=== PATIENT | female | born 1995 | race Caucasian/White ===

== ENCOUNTER 2020-09-02 21:53 | Emergency (ER) | payer OTHER ==
[2020-09-02 22:01] VITALS: BP 122/81; PULSE 99; TEMP 98.4; BMI 31.1
[2020-09-02 23:08] LABS: BASO % 0.9 % (0-2.0); EOS % 1.9 % (0-4.5); HEMATOCRIT 36.5 % (32.4-45.2); HEMOGLOBIN 12.7 GM/dL (10.7-15.3); LYMPH % 29.7 % (8-40); MCH 31.2 pg (25.7-33.7); MCHC 34.8 g/dl (32.0-36.0); MEAN CELL VOLUME 89.7 fl (80-96); MEAN PLT VOLUME 7.9 fl (7.5-11.1); MONO % 4.8 % (3.8-10.2); NEUT % 62.7 % (42.8-82.8); PLATELET COUNT 325 10^3/uL (134-434); RBC 4.07 M/mm3 (3.60-5.2); RDW 12.9 % (11.6-15.6); WHITE BLOOD COUNT 9.1 K/mm3 (4.0-10.0)
[2020-09-02 23:33] LABS: PH,URINE 5.5 (5.0-8.0); URINE APPEARANCE Clear; URINE BILIRUBIN Negative (NEGATIVE); URINE COLOR Yellow; URINE GLUCOSE (UA) Negative (NEGATIVE); URINE KETONE Negative (NEGATIVE); URINE LEUK ESTERASE Negative (NEGATIVE); URINE NITRITE Negative (NEGATIVE); URINE PROTEIN Negative (NEGATIVE); URINE UROBILINOGEN 0.2 mg/dL (0.2-1.0)
[2020-09-03] MEDS ORDERED: RHO(D) IMMUNE GLOBULIN 1,500 UNIT DISP.SYRIN IM ONE (00:50)
[2020-09-03 10:44] LABS: EPI CELLS 1.1 /uL (0-25.1); URINE RBC 1.1 /uL (0-23.9); URINE WBC 1.2 /uL (0-25.8)
[2020-09-03 10:45] LABS: HYALINE CASTS 0.12 /uL (0-3.1); URINE BACTERIA 5.5 /uL (0-1359)
== END 2020-09-03 02:20 | disposition home or self-care (01) ==
LOC: JER 21:53
PROC: 3E023GC Introduction of Other Therapeutic Substance into Muscle, Percutaneous Approach (ICD-10-PCS; principal; 2020-09-02)
DX: O20.9 Hemorrhage in early pregnancy, unspecified (principal); Z3A.08 8 weeks gestation of pregnancy
CPT/HCPCS: 36415; 76801-TC; 81003; 84702; 85025; 86850; 86900; 86901; 86999; 87086; 99284-25; J1561

== ENCOUNTER 2021-03-23 17:50 | Emergency (ER) | payer OTHER ==
[2021-03-23 18:01] VITALS: BP 122/78; PULSE 68; TEMP 97; BMI 34.4
[2021-03-23] MEDS ORDERED: ELECTROLYTE-148 SOLN 500 ML IV SCH ×2 (19:30→20:30)
[2021-03-23 20:08] LABS: BASO % 0.3 % (0-2.0); EOS % 0.3 % (0-4.5); HEMATOCRIT 37.3 % (32.4-45.2); HEMOGLOBIN 12.8 GM/dL (10.7-15.3); LYMPH % 18.3 % (8-40); MCH 31.9 pg (25.7-33.7); MCHC 34.3 g/dl (32.0-36.0); MEAN PLT VOLUME 8.3 fl (7.5-11.1); MONO % 4.4 % (3.8-10.2); NEUT % 76.7 % (42.8-82.8); PLATELET COUNT 264 10^3/uL (134-434); RBC 4.01 M/mm3 (3.60-5.2); RDW 13.8 % (11.6-15.6); WHITE BLOOD COUNT 7.1 K/mm3 (4.0-10.0)
[2021-03-23 20:52] LABS: CALCIUM 9.3 mg/dL (8.5-10.1)
[2021-03-23 20:53] LABS: ALBUMIN 2.7 g/dl (3.4-5.0); BLOOD UREA NITROGEN 7.2 mg/dL (7-18)
[2021-03-23 20:54] LABS: EPI CELLS >36 /uL (0-25.1); HYALINE CASTS 15 /uL (0-3.1); PH,URINE 5.5 (5.0-8.0); URINE APPEARANCE CLOUDY; URINE BILIRUBIN 2+ (NEGATIVE); URINE COLOR DK YELLOW; URINE GLUCOSE (UA) NEGATIVE (NEGATIVE); URINE KETONE 4+ (NEGATIVE); URINE LEUK ESTERASE TRACE (NEGATIVE); URINE NITRITE POSITIVE (NEGATIVE); URINE PROTEIN 1+ (NEGATIVE); URINE RBC 45 /uL (0-23.9); URINE WBC 72 /uL (0-25.8)
[2021-03-23 20:56] LABS: CREATININE 0.7 mg/dL (0.55-1.3)
[2021-03-23 20:57] LABS: BILIRUBIN,TOTAL 1.2 mg/dL (0.2-1); TOT PROT 6.2 g/dl (6.4-8.2)
[2021-03-23 21:20] LABS: URINE BACTERIA 1331.1 /uL (0-1359)
[2021-03-23] MEDS ORDERED: CITRIC ACID/SODIUM CITRATE 30 ML UNIT-DOSE CUP PO ONE (21:24)
== END 2021-03-23 23:20 | disposition home or self-care (01) ==
LOC: JER 17:50
DX: O26.893 Other specified pregnancy related conditions, third trimester (principal); R10.10 Upper abdominal pain, unspecified; E86.0 Dehydration; O24.419 Gestational diabetes mellitus in pregnancy, unspecified control; Z3A.37 37 weeks gestation of pregnancy
CPT/HCPCS: 36415; 80053; 81003; 85025; 87086; 99283-25

== ENCOUNTER 2021-03-24 15:34 | Inpatient (IN) | payer OTHER ==
[2021-03-24 15:39] VITALS: BMI 34.4
[2021-03-24] MEDS ORDERED: ACETAMINOPHEN 1000 MG/100 ML BAG IVPB ONE (16:48)
[2021-03-24] MEDS ORDERED: ONDANSETRON 4 MG/2 ML VIAL IVPUSH ONE (16:48)
[2021-03-24] MEDS ORDERED: SODIUM CHLORIDE 1,000 ML IV STA ×2 (16:48→21:03)
[2021-03-24] MEDS ORDERED: DEXTROSE 5%-0.45% SALINE 1,000 ML IV SCH (17:00)
[2021-03-24] MEDS ORDERED: ACETAMINOPHEN INJECTION 100 ML IVPB ONE (17:20)
[2021-03-24] MEDS ORDERED: ONDANSETRON 4 MG/2 ML VIAL ONE (17:20)
[2021-03-24] MEDS ORDERED: LACTATED RINGERS SOLUTION 1,000 ML/1,000 ML INFUS.BAG IV SCH (17:30)
[2021-03-24 17:46] LABS: BASO % 0.3 % (0-2.0); EOS % 0.4 % (0-4.5); HEMATOCRIT 41.7 % (32.4-45.2); HEMOGLOBIN 14.2 GM/dL (10.7-15.3); LYMPH % 19.1 % (8-40); MCH 31.7 pg (25.7-33.7); MEAN CELL VOLUME 93.1 fl (80-96); MEAN PLT VOLUME 8.9 fl (7.5-11.1); MONO % 4.2 % (3.8-10.2); PLATELET COUNT 279 10^3/uL (134-434); RBC 4.48 M/mm3 (3.60-5.2); RDW 13.6 % (11.6-15.6); WHITE BLOOD COUNT 6.8 K/mm3 (4.0-10.0)
[2021-03-24 17:52] LABS: INR 0.87 (0.83-1.09)
[2021-03-24 18:07] LABS: BLOOD UREA NITROGEN 6.4 mg/dL (7-18)
[2021-03-24 18:10] LABS: CREATININE 0.7 mg/dL (0.55-1.3)
[2021-03-24 18:12] LABS: BILIRUBIN,TOTAL 1.2 mg/dL (0.2-1); TOT PROT 6.9 g/dl (6.4-8.2)
[2021-03-24] MEDS ORDERED: morphine CARPU-JECT 4 MG/1 ML DISP.SYRIN IVPUSH ONE (19:21)
[2021-03-24] MEDS ORDERED: morphine SULFATE 4 MG/ML VIAL ONE (20:25)
[2021-03-24 20:31] LABS: EPI CELLS >36 /uL (0-25.1); HYALINE CASTS 11 /uL (0-3.1); PH,URINE 5.5 (5.0-8.0); URINE APPEARANCE CLOUDY; URINE BILIRUBIN 2+ (NEGATIVE); URINE COLOR DK YELLOW; URINE GLUCOSE (UA) NEGATIVE (NEGATIVE); URINE KETONE 4+ (NEGATIVE); URINE LEUK ESTERASE NEGATIVE (NEGATIVE); URINE NITRITE POSITIVE (NEGATIVE); URINE PROTEIN 1+ (NEGATIVE); URINE RBC 30 /uL (0-23.9); URINE WBC 46 /uL (0-25.8)
[2021-03-24 23:12] LABS: URINE BACTERIA 486.5 /uL (0-1359)
[2021-03-24] MEDS ORDERED: CEFTRIAXONE 1,000 MG in DEXTROSE 5%-WATER - 50 ML IVPB ONE (23:46)
[2021-03-25] MEDS ORDERED: CEFTRIAXONE 1 GM/50 ML BAG ONE (00:16)
[2021-03-25] MEDS ORDERED: ACETAMINOPHEN 1000 MG/100 ML BAG IVPB ONE (10:15)
[2021-03-25] MEDS ORDERED: HYDROmorphone HCl 2 MG/ML VIAL IVPB ONE (12:00)
[2021-03-25] MEDS: SODIUM CHLORIDE 1,000 ML IV SCH ×2 (12:08→21:08)
[2021-03-25] MEDS: ONDANSETRON 4 MG/2 ML VIAL IVPUSH PRN (12:38)
[2021-03-25 13:15] LABS: BASO % 0.3 % (0-2.0); EOS % 0.6 % (0-4.5); HEMOGLOBIN 11.9 GM/dL (10.7-15.3); LYMPH % 19.7 % (8-40); MCH 31.9 pg (25.7-33.7); MCHC 34.1 g/dl (32.0-36.0); MEAN CELL VOLUME 93.6 fl (80-96); MEAN PLT VOLUME 8.4 fl (7.5-11.1); MONO % 4.8 % (3.8-10.2); NEUT % 74.6 % (42.8-82.8); PLATELET COUNT 224 10^3/uL (134-434); RBC 3.73 M/mm3 (3.60-5.2); RDW 13.7 % (11.6-15.6); WHITE BLOOD COUNT 5.5 K/mm3 (4.0-10.0)
[2021-03-25 13:35] LABS: CALCIUM 8.9 mg/dL (8.5-10.1)
[2021-03-25 13:36] LABS: BLOOD UREA NITROGEN 5.7 mg/dL (7-18)
[2021-03-25 13:37] LABS: ALBUMIN 2.4 g/dl (3.4-5.0)
[2021-03-25 13:39] LABS: CREATININE 0.7 mg/dL (0.55-1.3)
[2021-03-25 13:42] LABS: BILIRUBIN,TOTAL 1.5 mg/dL (0.2-1); TOT PROT 5.4 g/dl (6.4-8.2)
[2021-03-25] MEDS ORDERED: ACETAMINOPHEN 1000 MG/100 ML BAG IVPB PRN (18:00)
[2021-03-26] MEDS: ONDANSETRON 4 MG/2 ML VIAL IVPUSH PRN (08:14)
[2021-03-26] MEDS ORDERED: CALCIUM CARBONATE 650 MG TABLET PO PRN (09:45)
[2021-03-26] MEDS ORDERED: CITRIC ACID/SODIUM CITRATE 30 ML UNIT-DOSE CUP PO PRN (09:56)
[2021-03-26] MEDS ORDERED: CITRIC ACID/SODIUM CITRATE 30 ML UNIT-DOSE CUP PO ONE (11:36)
[2021-03-26 11:44] LABS: ALBUMIN 2.2 g/dl (3.4-5.0); CALCIUM 8.7 mg/dL (8.5-10.1)
[2021-03-26 11:45] LABS: BLOOD UREA NITROGEN 5.8 mg/dL (7-18)
[2021-03-26 11:48] LABS: CREATININE 0.8 mg/dL (0.55-1.3)
[2021-03-26] MEDS: ELECTROLYTE-148 SOLN 1,000 ML IV SCH ×2 (13:20→17:30)
[2021-03-26] MEDS ORDERED: OXYTOCIN 30 UNITS in 0.9% NS 30 UNIT/500 ML INFUS.BAG IVPB ONE (14:03)
[2021-03-26] MEDS: OXYTOCIN 30 UNITS in 0.9% NS 30 UNIT/500 ML INFUS.BAG IVPB SCH (14:05)
[2021-03-26] MEDS ORDERED: AMPICILLIN SODIUM 2 GM VIAL ONE (14:58)
[2021-03-26] MEDS ORDERED: AMPICILLIN - 2 GM in SODIUM CHLORIDE 100 ML IVPB ONE (15:00)
[2021-03-26] MEDS ORDERED: NALOXONE HCL 0.4 MG/ML VIAL IVPUSH PRN (17:29)
[2021-03-26] MEDS ORDERED: FENTANYL/BUPIVACAINE/NS/PF - PCEA - 50 ML DISP.SYRIN EP ONE ×2 (17:30→22:18)
[2021-03-26] MEDS: FENTANYL/BUPIVACAINE/NS/PF - PCEA - 50 ML DISP.SYRIN EP SCH ×2 (18:00→22:30)
[2021-03-26] MEDS ORDERED: AMPICILLIN SODIUM 1 GM VIAL ONE ×2 (18:46→23:00)
[2021-03-26] MEDS: AMPICILLIN - 1 GM in SODIUM CHLORIDE 100 ML IVPB SCH ×2 (18:51→23:00)
[2021-03-27] MEDS ORDERED: OXYTOCIN 20 UNITS in 0.9% NS 20 UNIT/1,000 ML INFUS.BAG IV ONE (01:03)
[2021-03-27] MEDS ORDERED: BENZOCAINE 28 GM HEMORRHOIDAL OINTMENT TP PRN (02:23)
[2021-03-27] MEDS ORDERED: BISACODYL 10 MG SUPP.RECT RC PRN (02:23)
[2021-03-27] MEDS ORDERED: ACETAMINOPHEN 325 MG TABLET (FP) PO PRN (02:23)
[2021-03-27] MEDS ORDERED: METHYLERGONOVINE MALEATE 0.2 MG/1 ML AMP IM PRN (02:23)
[2021-03-27] MEDS ORDERED: BENZOCAINE 20% 57 GM BOTTLE TP PRN (02:23)
[2021-03-27] MEDS ORDERED: oxyCODONE HCL 5 MG TABLET PO PRN (02:23)
[2021-03-27] MEDS ORDERED: WITCH HAZEL 50% (TUCKS) 40 PAD/JAR PAD TP PRN (02:23)
[2021-03-27] MEDS ORDERED: OXYTOCIN 20 UNITS in 0.9% NS 20 UNIT/1,000 ML INFUS.BAG IV SCH (02:30)
[2021-03-27] MEDS: AMPICILLIN - 1 GM in SODIUM CHLORIDE 100 ML IVPB SCH ×4 (04:11→20:02)
[2021-03-27] MEDS: SODIUM CHLORIDE 1,000 ML IV SCH ×2 (04:11→20:02)
[2021-03-27] MEDS: IBUPROFEN 600 MG TABLET (FP) PO PRN ×2 (04:35→18:27)
[2021-03-27 07:34] LABS: BASO % 0.2 % (0-2.0); EOS % 0.1 % (0-4.5); HEMOGLOBIN 10.3 GM/dL (10.7-15.3); LYMPH % 9.4 % (8-40); MCH 31.1 pg (25.7-33.7); MCHC 33.1 g/dl (32.0-36.0); MEAN CELL VOLUME 93.9 fl (80-96); MEAN PLT VOLUME 8.9 fl (7.5-11.1); MONO % 5.1 % (3.8-10.2); NEUT % 85.2 % (42.8-82.8); PLATELET COUNT 240 10^3/uL (134-434); RDW 13.7 % (11.6-15.6); WHITE BLOOD COUNT 11.2 K/mm3 (4.0-10.0)
[2021-03-27 08:08] LABS: CHLORIDE 136 mmol/L (98-107)
[2021-03-27 08:10] LABS: CALCIUM 8.2 mg/dL (8.5-10.1)
[2021-03-27 08:11] LABS: ALBUMIN 1.8 g/dl (3.4-5.0); BLOOD UREA NITROGEN 5.5 mg/dL (7-18); CO2 22 mmol/L (21-32); GLUCOSE,RANDOM 99 mg/dL (74-106); MAGNESIUM 1.9 mg/dL (1.8-2.4)
[2021-03-27 08:14] LABS: CREATININE 0.8 mg/dL (0.55-1.3); SGOT/AST 20 U/L (15-37); SGPT/ALT 31 U/L (13-61)
[2021-03-27 08:15] LABS: BILIRUBIN,TOTAL 0.8 mg/dL (0.2-1)
[2021-03-27 08:16] LABS: TOT PROT 4.2 g/dl (6.4-8.2)
[2021-03-27 08:17] LABS: ALK PHOS 169 U/L (45-117)
[2021-03-27 08:19] LABS: ANION GAP 18 MMOL/L (8-16); SODIUM 176 mmol/L (136-145)
[2021-03-27 09:49] LABS: BLOOD UREA NITROGEN 6.2 mg/dL (7-18); CALCIUM 8.2 mg/dL (8.5-10.1)
[2021-03-27 09:52] LABS: CREATININE 0.9 mg/dL (0.55-1.3)
[2021-03-27] MEDS: OXYTOCIN 30 UNITS in 0.9% NS 30 UNIT/500 ML INFUS.BAG IVPB SCH (20:02)
[2021-03-27] MEDS: FENTANYL/BUPIVACAINE/NS/PF - PCEA - 50 ML DISP.SYRIN EP SCH (20:03)
[2021-03-27] MEDS: ELECTROLYTE-148 SOLN 1,000 ML IV SCH (20:03)
[2021-03-28 01:25] VITALS: TEMP 97.9
[2021-03-28 07:16] LABS: BASO % 0.4 % (0-2.0); EOS % 1.6 % (0-4.5); HEMATOCRIT 27.5 % (32.4-45.2); HEMOGLOBIN 9.1 GM/dL (10.7-15.3); LYMPH % 27.4 % (8-40); MCH 31.2 pg (25.7-33.7); MCHC 33.2 g/dl (32.0-36.0); MEAN CELL VOLUME 93.9 fl (80-96); MEAN PLT VOLUME 8.7 fl (7.5-11.1); MONO % 4.6 % (3.8-10.2); PLATELET COUNT 218 10^3/uL (134-434); RBC 2.93 M/mm3 (3.60-5.2); WHITE BLOOD COUNT 5.7 K/mm3 (4.0-10.0)
[2021-03-28 07:39] LABS: ALBUMIN 1.9 g/dl (3.4-5.0); CALCIUM 8.2 mg/dL (8.5-10.1)
[2021-03-28 07:40] LABS: BLOOD UREA NITROGEN 6.9 mg/dL (7-18)
[2021-03-28 07:43] LABS: CREATININE 0.8 mg/dL (0.55-1.3)
[2021-03-28 07:44] LABS: BILIRUBIN,TOTAL 0.4 mg/dL (0.2-1); TOT PROT 4.5 g/dl (6.4-8.2)
[2021-03-28 08:50] VITALS: BP 121/76; PULSE 68
[2021-03-28] MEDS ORDERED: SENNOSIDES/DOCUSATE COMBO (SENNA PLUS) TABLET (UD) PO PRN (22:00)
== END 2021-03-28 12:25 | disposition home or self-care (01) | DRG 806 ==
LOC: JER 15:34 → INTOOBSV 23:01 → UNDOADMOB 23:01 → JERBED 23:01 → J3W 03-25 04:15 → OBSVTOIN 03-26 11:36 → JLDR 03-26 11:45 → J3W 03-27 04:24
PROVIDERS: ADMIT Specialist; ATTEND Specialist
PROC: 10E0XZZ Delivery of Products of Conception, External Approach (ICD-10-PCS; principal; 2021-03-27)
PROC: 0W8NXZZ Division of Female Perineum, External Approach (ICD-10-PCS; 2021-03-27)
DX: O26.62 Liver and biliary tract disorders in childbirth (principal); O87.2 Hemorrhoids in the puerperium; Z37.0 Single live birth; K80.50 Calculus of bile duct without cholangitis or cholecystitis without obstruction; O24.425 Gestational diabetes mellitus in childbirth, controlled by oral hypoglycemic drugs; Z3A.37 37 weeks gestation of pregnancy; O99.824 Streptococcus B carrier state complicating childbirth
CPT/HCPCS: 36415; 59409; 76705-TC; 76801-TC; 80048; 80053; 80076; 81003; 82962; 83605; 83690; 83735; 85025; 85610; 86850; 86870; 86900; 86901; 86902; 87086; 93005; 93010; 99285-25; C9803; G0378; J0131; U0003; U0005

== ENCOUNTER 2021-04-07 16:58 | Day surgery (SDC) | payer OTHER ==
[2021-04-07 18:30] LABS: BASO % 0.3 % (0-2.0); EOS % 0.6 % (0-4.5); HEMATOCRIT 33.9 % (32.4-45.2); HEMOGLOBIN 11.6 GM/dL (10.7-15.3); MCH 31.6 pg (25.7-33.7); MCHC 34.3 g/dl (32.0-36.0); MEAN PLT VOLUME 6.9 fl (7.5-11.1); NEUT % 82.1 % (42.8-82.8); PLATELET COUNT 429 10^3/uL (134-434); RBC 3.69 M/mm3 (3.60-5.2); RDW 13.6 % (11.6-15.6); WHITE BLOOD COUNT 9.3 K/mm3 (4.0-10.0)
[2021-04-07 18:36] LABS: INR 0.89 (0.83-1.09); PROTHROMBIN TIME (PATIENT) 10.2 SEC (9.7-13.0)
[2021-04-07 18:39] LABS: ACTIVATED PTT 32.8 SECONDS (25.2-36.5)
[2021-04-07 18:56] LABS: ALBUMIN 3.5 g/dl (3.4-5.0); BILIRUBIN,TOTAL 0.6 mg/dL (0.2-1); BLOOD UREA NITROGEN 20.3 mg/dL (7-18); CALCIUM 9.9 mg/dL (8.5-10.1); CREATININE 0.8 mg/dL (0.55-1.3); TOT PROT 7.2 g/dl (6.4-8.2)
[2021-04-07] MEDS ORDERED: LACTATED RINGERS SOLUTION 1000 ML INFUS.BAG IV ONE (19:01)
[2021-04-07] MEDS ORDERED: ACETAMINOPHEN 1000 MG/100 ML BAG IVPB ONE (20:33)
[2021-04-07 20:58] LABS: EPI CELLS 4 /uL (0-25.1); HYALINE CASTS 1 /uL (0-3.1); URINE APPEARANCE CLEAR; URINE BACTERIA 1 /uL (0-1359); URINE BILIRUBIN NEGATIVE (NEGATIVE); URINE COLOR YELLOW; URINE GLUCOSE (UA) NEGATIVE (NEGATIVE); URINE KETONE NEGATIVE (NEGATIVE); URINE LEUK ESTERASE NEGATIVE (NEGATIVE); URINE NITRITE NEGATIVE (NEGATIVE); URINE PROTEIN NEGATIVE (NEGATIVE); URINE RBC 20 /uL (0-23.9); URINE WBC 17 /uL (0-25.8)
[2021-04-07] MEDS ORDERED: ACETAMINOPHEN 325 MG TABLET (FP) PO PRN (23:24)
[2021-04-07] MEDS ORDERED: ONDANSETRON 4 MG/2 ML VIAL IVPUSH PRN (23:37)
[2021-04-08 04:51] VITALS: BMI 28.8
[2021-04-08] MEDS ORDERED: LACTATED RINGERS SOLUTION 1,000 ML/1,000 ML INFUS.BAG IV SCH (08:00)
[2021-04-08 11:16] LABS: HEMATOCRIT 31.6 % (32.4-45.2); HEMOGLOBIN 10.8 GM/dL (10.7-15.3); MCH 31.7 pg (25.7-33.7); MCHC 34.1 g/dl (32.0-36.0); MEAN CELL VOLUME 93.1 fl (80-96); PLATELET COUNT 433 10^3/uL (134-434); RBC 3.39 M/mm3 (3.60-5.2); RDW 13.3 % (11.6-15.6); WHITE BLOOD COUNT 5.4 K/mm3 (4.0-10.0)
[2021-04-08 11:50] LABS: CALCIUM 8.8 mg/dL (8.5-10.1)
[2021-04-08 11:52] LABS: CREATININE 0.8 mg/dL (0.55-1.3)
[2021-04-08 11:53] LABS: PHOSPHOROUS 3.6 mg/dL (2.5-4.9)
[2021-04-08] MEDS ORDERED: fentaNYL CITRATE 250 MCG/5 ML VIAL ONE (13:51)
[2021-04-08] MEDS ORDERED: PROPOFOL 20 ML ONE (13:51)
[2021-04-08] MEDS ORDERED: ROCURONIUM BROMIDE 50 MG/5 ML SYRINGE ONE (13:51)
[2021-04-08] MEDS ORDERED: MIDAZOLAM HCL 2 MG/2 ML SINGLE DOSE VIAL ONE ×2 (13:52)
[2021-04-08] MEDS ORDERED: ceFAZolin SODIUM 1 GM VIAL IVPB ONE (14:24)
[2021-04-08] MEDS ORDERED: HYDROmorphone HCl 2 MG/ML VIAL ONE (14:40)
[2021-04-08] MEDS ORDERED: NEOSTIGMINE METHYLSULFATE 0.5 MG/ML - 10 ML MDV ONE (15:02)
[2021-04-08] MEDS ORDERED: ceFAZolin SODIUM 1 GM VIAL ONE (15:03)
[2021-04-08] MEDS ORDERED: GLYCOPYRROLATE 0.2 MG/1 ML VIAL ONE (15:03)
[2021-04-08] MEDS ORDERED: BUPIVACAINE HCL/PF 0.5% (5 MG/ML) 30 ML VIAL IJ ONE ×2 (15:03)
[2021-04-08] MEDS ORDERED: KETOROLAC TROMETHAMINE 30 MG/1 ML VIAL ONE (15:03)
[2021-04-08] MEDS ORDERED: DEXAMETHASONE SOD PHOSPHATE 4 MG/1 ML VIAL ONE (15:03)
[2021-04-08] MEDS ORDERED: KETOROLAC TROMETHAMINE 30 MG/1 ML VIAL IVPUSH PRN (15:25)
[2021-04-08] MEDS ORDERED: ONDANSETRON 4 MG/2 ML VIAL IVPUSH PRN ×2 (15:27→16:07)
[2021-04-08] MEDS ORDERED: oxyCODONE HCL 5 MG TABLET PO ONE (15:27)
[2021-04-08] MEDS ORDERED: LACTATED RINGERS SOLUTION 1,000 ML IV SCH (15:30)
[2021-04-08] MEDS: ACETAMINOPHEN 1000 MG/100 ML BAG IVPB ONE ×2 (16:00→16:55)
[2021-04-08] MEDS ORDERED: ACETAMINOPHEN INJECTION 100 ML IVPB ONE (16:56)
[2021-04-08] MEDS ORDERED: ACETAMINOPHEN 500 MG TABLET (FP) PO SCH ×2 (17:00→21:30)
[2021-04-08 18:19] VITALS: BP 121/81; PULSE 68; TEMP 98.4
[2021-04-08] MEDS ORDERED: oxyCODONE HCL 5 MG TABLET PO PRN (21:30)
== END 2021-04-08 20:32 | disposition home or self-care (01) ==
LOC: JER 16:58 → UNDOADMIN 22:06 → JASUSAT 22:06 → JERBED 22:06 → J8W 04-08 04:47 → JERBED 04-08 04:47 → J8W 04-08 04:47 → JASUSAT 04-08 20:32
PROVIDERS: ATTEND Nurse Practitioner Acute Care
PROC: 0FT44ZZ Resection of Gallbladder, Percutaneous Endoscopic Approach (ICD-10-PCS; principal; 2021-04-07)
DX: K80.00 Calculus of gallbladder with acute cholecystitis without obstruction (principal)
CPT/HCPCS: 36415; 71045-TC-FY; 76705-TC; 80048; 80053; 80307; 81003; 83690; 83735; 84100; 84484; 84703; 85025; 85027; 85610; 85730; 86705; 86708; 86850; 86900; 86901; 87086; 87517; 87522; 88304-TC; 93005; 93010; 94760; 99285-25; C9803; U0003; U0005